=== PATIENT | male | born 1955 | race American Indian/Alaskan Native ===

== ENCOUNTER 2017-01-10 14:00 | Emergency (ER) | payer OTHER ==
--- NOTE | 2017-01-10 15:08 | XRay Report ---
Chest 2 views: History: Shortness of breath. Findings: Normal cardiomediastinal silhouette. Trachea is midline. No consolidation, pneumothorax or pleural effusion. Impression: No acute cardiopulmonary findings.
[2017-01-10 16:09] LABS: Red Blood Count 5.37 M/mm3 (3.65-5.03); White Blood Count 8.4 K/mm3 (4.5-11.0)
[2017-01-10 16:10] LABS: Hematocrit 44.3 % (35.5-45.6); Hemoglobin 14.5 gm/dl (11.8-15.2); Mean Corpuscular HGB Conc 33 % (32-34); Mean Corpuscular Hemoglobin 27 pg (28-32); Mean Corpuscular Volume 83 fl (84-94)
[2017-01-10 16:11] LABS: Mean Platelet Volume 9.8 fl (6-12); Platelet Count 173 K/mm3 (140-440); Red Cell Distribution Width 15.3 % (13.2-15.2)
[2017-01-10 16:14] LABS: Diff Status Complete
[2017-01-10 16:44] LABS: Anion Gap 19 mmol/L; Carbon Dioxide 26 mmol/L (22-30); Chloride 96.2 mmol/L (98-107); Potassium 4.1 mmol/L (3.6-5.0); Sodium 137 mmol/L (137-145)
[2017-01-10 16:45] LABS: BUN/Creatinine Ratio 13.63; Blood Urea Nitrogen 15 mg/dL (9-20); Calcium 9.3 mg/dL (8.4-10.2); Glucose 95 mg/dL (75-100)
[2017-01-10] MEDS ORDERED: ZITHROMAX PO ONE (22:07)
[2017-01-10] MEDS ORDERED: TESSALON PERLES PO ONE (22:07)
[2017-01-10] MEDS ORDERED: TORADOL IM ONE (22:07)
[2017-01-10] MEDS ORDERED: DELTASONE PO ONE (22:07)
[2017-01-10] MEDS ORDERED: DUONEB 0.5 MG-3 MG/3 ML SOLN IH ONE (22:18)
--- NOTE | 2017-01-10 23:00 | Emergency Department Report ---
ED Shortness of Breath HPI - General Chief Complaint: Dyspnea/Respdistress Stated Complaint: SOB,ABD PAIN Time Seen by Provider: 01/10/17 21:51 Source: patient Mode of arrival: Ambulatory Limitations: No Limitations - History of Present Illness Initial Comments: 61-year-old male with a past medical history COPD, hypertension and chronic back pain presents to the hospital complains of shortness, cough, and wheezing for the past week. Cough productive of white and occasional pink sputum. Patient complaining of abdominal cramps that occur with coughing. During cramping episodes patient has to stretch his abdominal muscles for relief. Pain rated 7/10 in intensity. Patient having intermittent wheezing and only has a little bit of albuterol left at home. Denies home nebulizer use, fevers, calf pain, or edema. PMD: Cannot recall the name - Related Data Home Medications Medication Instructions Recorded Confirmed Last Taken Amlodipine Besylate [Norvasc] 10 mg PO DAILY 01/10/17 01/10/17 01/10/17 Lisinopril/Hydrochlorothiazide 1 tab PO QDAY 01/10/17 01/10/17 01/10/17 [Zestoretic 20-25 mg] Penicillin Vk [Veetids TAB] 500 mg PO DAILY 01/10/17 01/10/17 01/10/17 Simvastatin [Zocor TAB] 20 mg PO QHS 01/10/17 01/10/17 01/10/17 Previous Rx's Medication Instructions Recorded Last Taken Type ALBUTEROL Inhaler [ProAir HFA 2 puff IH QID PRN #1 inhalation 01/11/17 Unknown Rx Inhaler] Azithromycin [Zithromax Z-ROSA] 1 dose PO DAILY 5 Days 01/11/17 Unknown Rx Benzonatate [Tessalon Perles] 100 mg PO Q8HR PRN #30 capsule 01/11/17 Unknown Rx Ibuprofen [Motrin] 800 mg PO Q8HR PRN #30 tablet 01/11/17 Unknown Rx Prednisone [predniSONE 10 mg 10 mg PO .TAPER #1 tab.ds.pk 01/11/17 Unknown Rx (6-Day Pack, 21 Tabs)] traMADol [Ultram 50 MG tab] 50 mg PO Q6HR PRN #20 tablet 01/11/17 Unknown Rx Allergies Allergy/AdvReac Type Severity Reaction Status Date / Time No Known Allergies Allergy Verified 11/07/14 09:56 ED Review of Systems ROS: Stated complaint: SOB,ABD PAIN Other details as noted in HPI Comment: All other systems reviewed and negative Other: Constitutional: No fevers chills Eyes: No eye pain visual changes or discharge ENT: No ear pain or throat pain Neck: Denies pain Respiratory: as per hpi Cardiovascular: Denies chest pain, palpitations, syncope GI: Denies nausea, vomiting, diarrhea : Denies dysuria Musculoskeletal: Denies back pain Skin: Denies rash, lesions, erythema Neurologic: Denies headache, numbness, weakness Psychiatric: Denies suicidal ideation, hallucinations ED Past Medical Hx - Past Medical History Hx Hypertension: Yes Hx COPD: Yes Additional medical history: CHRONIC BACK PAIN - Surgical History Additional Surgical History: HERNIA, ABDOMINAL SURGERY - Social History Smoking Status: Current Every Day Smoker Substance Use Type: None - Medications Home Medications: Home Medications Medication Instructions Recorded Confirmed Last Taken Type Amlodipine Besylate [Norvasc] 10 mg PO DAILY 01/10/17 01/10/17 01/10/17 History Lisinopril/Hydrochlorothiazide 1 tab PO QDAY 01/10/17 01/10/17 01/10/17 History [Zestoretic 20-25 mg] Penicillin Vk [Veetids TAB] 500 mg PO DAILY 01/10/17 01/10/17 01/10/17 History Simvastatin [Zocor TAB] 20 mg PO QHS 01/10/17 01/10/17 01/10/17 History ALBUTEROL Inhaler [ProAir HFA 2 puff IH QID PRN #1 inhalation 01/11/17 Unknown Rx Inhaler] Azithromycin [Zithromax Z-ROSA] 1 dose PO DAILY 5 Days 01/11/17 Unknown Rx Benzonatate [Tessalon Perles] 100 mg PO Q8HR PRN #30 capsule 01/11/17 Unknown Rx Ibuprofen [Motrin] 800 mg PO Q8HR PRN #30 tablet 01/11/17 Unknown Rx Prednisone [predniSONE 10 mg 10 mg PO .TAPER #1 tab.ds.pk 01/11/17 Unknown Rx (6-Day Pack, 21 Tabs)] traMADol [Ultram 50 MG tab] 50 mg PO Q6HR PRN #20 tablet 01/11/17 Unknown Rx ED Physical Exam - General Limitations: No Limitations - Other Other exam information: General: No limitations, patient is alert in no acute distress Head exam: Atraumatic, normocephalic Eyes exam: Normal appearance ENT: Moist mucous membrane, normal oropharynx Neck exam: Normal inspection, full range of motion, no meningismus nontender Respiratory exam: Bilateral expiratory wheeze, no accessory muscle use Cardiovascular: Normal rate and rhythm, normal heart sounds Abdomen: Soft, nondistended, and nontender, with normal bowel sounds, no rebound, or guarding Extremity: Full range of motion normal inspection no deformity, no calf tenderness or edema Back: Normal Inspection, full range of motion, no tenderness Neurologic: Alert, oriented x3, cranial nerves intact, no motor or sensory deficit Psychiatric: normal affect, normal mood Skin: Warm, dry, intact ED Course Vital Signs 01/10/17 01/10/17 01/10/17 14:16 21:14 21:21 Temperature 98 F Pulse Rate 84 72 71 Pulse Rate [ Left Middle Lobe] Respiratory 22 19 13 Rate Respiratory Rate [Left Middle Lobe] Blood Pressure 118/76 132/77 Blood Pressure [Right] O2 Sat by Pulse 94 95 94 Oximetry 01/10/17 01/10/17 01/10/17 21:31 21:40 21:41 Temperature Pulse Rate 70 69 69 Pulse Rate [ Left Middle Lobe] Respiratory 13 13 15 Rate Respiratory Rate [Left Middle Lobe] Blood Pressure 139/73 139/73 Blood Pressure 139/73 [Right] O2 Sat by Pulse 94 92 93 Oximetry 01/10/17 01/10/17 01/10/17 21:51 22:01 22:11 Temperature Pulse Rate 68 71 76 Pulse Rate [ Left Middle Lobe] Respiratory 13 14 17 Rate Respiratory Rate [Left Middle Lobe] Blood Pressure 113/76 106/81 106/81 Blood Pressure [Right] O2 Sat by Pulse 93 96 93 Oximetry 01/10/17 01/10/17 01/10/17 22:21 22:28 22:31 Temperature Pulse Rate 85 66 Pulse Rate [ 75 Left Middle Lobe] Respiratory 15 22 Rate Respiratory 18 Rate [Left Middle Lobe] Blood Pressure 130/69 113/65 Blood Pressure [Right] O2 Sat by Pulse 92 100 Oximetry 01/10/17 01/10/17 01/10/17 22:41 22:51 23:00 Temperature Pulse Rate 85 77 Pulse Rate [ Left Middle Lobe] Respiratory 14 14 Rate Respiratory Rate [Left Middle Lobe] Blood Pressure 106/81 123/69 110/65 Blood Pressure [Right] O2 Sat by Pulse 97 95 93 Oximetry 01/10/17 01/10/17 01/10/17 23:08 23:11 23:21 Temperature Pulse Rate Pulse Rate [ 73 Left Middle Lobe] Respiratory 13 13 Rate Respiratory 28 H Rate [Left Middle Lobe] Blood Pressure 110/65 109/69 Blood Pressure [Right] O2 Sat by Pulse 93 92 Oximetry 01/10/17 01/10/17 01/10/17 23:31 23:41 23:51 Temperature Pulse Rate Pulse Rate [ Left Middle Lobe] Respiratory 16 13 13 Rate Respiratory Rate [Left Middle Lobe] Blood Pressure 109/69 109/69 127/92 Blood Pressure [Right] O2 Sat by Pulse 91 94 91 Oximetry 01/11/17 00:01 Temperature Pulse Rate 77 Pulse Rate [ Left Middle Lobe] Respiratory 12 Rate Respiratory Rate [Left Middle Lobe] Blood Pressure 111/64 Blood Pressure 127/92 [Right] O2 Sat by Pulse 90 Oximetry - Reevaluation(s) Reevaluation #1: 01/11/17 00:49 Patient with residual wheezing after receiving her prednisone and albuterol/ Atrovent DuoNeb. Patient does report feeling better. Additional albuterol 5 and Atrovent 0.5 will be given prior to d/c ED Medical Decision Making - Lab Data Result diagrams: 01/10/17 14:31 01/10/17 14:31 Lab Results 01/10/17 01/10/17 Range/Units 14:31 14:31 WBC 8.4 (4.5-11.0) K/mm3 RBC 5.37 H (3.65-5.03) M/mm3 Hgb 14.5 (11.8-15.2) gm/dl Hct 44.3 (35.5-45.6) % MCV 83 L (84-94) fl MCH 27 L (28-32) pg MCHC 33 (32-34) % RDW 15.3 H (13.2-15.2) % Plt Count 173 (140-440) K/mm3 Lymph % (Auto) 12.0 L (13.4-35.0) % [place] % (Auto) 5.0 (0.0-7.3) % Eos % (Auto) 11.0 H (0.0-4.3) % Baso % (Auto) 1.0 (0.0-1.8) % Lymph # 1.0 L (1.2-5.4) K/mm3 [place] # 0.4 (0.0-0.8) K/mm3 Eos # 0.9 H (0.0-0.4) K/mm3 Baso # 0.1 (0.0-0.1) K/mm3 Add Manual Diff Complete Seg Neutrophils % 71.0 H (40.0-70.0) % Seg Neutrophils # 6.0 (1.8-7.7) K/mm3 Sodium 137 (137-145) mmol/L Potassium 4.1 (3.6-5.0) mmol/L Chloride 96.2 L (98-107) mmol/L Carbon Dioxide 26 (22-30) mmol/L Anion Gap 19 mmol/L BUN 15 (9-20) mg/dL Creatinine 1.1 (0.8-1.5) mg/dL Estimated GFR > 60 ml/min BUN/Creatinine Ratio 13.63 % Glucose 95 (75-100) mg/dL Calcium 9.3 (8.4-10.2) mg/dL Troponin T < 0.010 (0.00-0.029) ng/mL - EKG Data -: EKG Interpreted by Me (nsr rate 80, no stemi) - EKG Data When compared to previous EKG there are: previous EKG unavailable - Radiology Data Radiology results: report reviewed (cxr: naf) - Medical Decision Making Patient be treated with acute bronchitis. No signs of hypoxia. Respiratory symptoms improved prior to discharge - Differential Diagnosis bronchitis, pneumonia, pneumonia, viral syndrome Critical Care Time: No Critical care attestation.: If time is entered above; I have spent that time in minutes in the direct care of this critically ill patient, excluding procedure time. ED Disposition Clinical Impression: COPD with acute bronchitis Disposition: DISCHARGED TO HOME OR SELFCARE Is pt being admited?: No Does the pt Need Aspirin: No Condition: Stable Instructions: Acute Bronchitis (ED) Additional Instructions: Take the medication as prescribed. Return if symptoms worsen. Follow up with your doctor. Prescriptions: ALBUTEROL Inhaler [ProAir HFA Inhaler] 2 puff IH QID PRN #1 inhalation PRN Reason: Shortness Of Breath Azithromycin [Zithromax Z-ROSA] 1 dose PO DAILY 5 Days Benzonatate [Tessalon Perles] 100 mg PO Q8HR PRN #30 capsule PRN Reason: Cp Unreliev By Ntg /Aller Morp Ibuprofen [Motrin] 800 mg PO Q8HR PRN #30 tablet PRN Reason: Pain Prednisone [predniSONE 10 mg (6-Day Pack, 21 Tabs)] 10 mg PO .TAPER #1 tab.ds.pk traMADol [Ultram 50 MG tab] 50 mg PO Q6HR PRN #20 tablet PRN Reason: Pain Referrals: SULEMA GARCIA [Other] - 3-5 Days Time of Disposition: 00:53
[2017-01-11] MEDS ORDERED: PROVENTIL IH ONE (00:48)
[2017-01-11] MEDS ORDERED: ATROVENT IH ONE (00:48)
[2017-01-11 01:16] VITALS: BP 108/60
== END 2017-01-11 01:23 | disposition home or self-care (01) ==
LOC: ED 14:00
DX: J44.1 Chronic obstructive pulmonary disease with (acute) exacerbation (principal); G89.29 Other chronic pain; F17.200 Nicotine dependence, unspecified, uncomplicated; Z88.0 Allergy status to penicillin
CPT/HCPCS: 36415; 71020; 80048; 84484; 85025; 93005; 93010; 94640; 96372; 99284; J1885; J7512

== ENCOUNTER 2018-02-12 13:39 | Outpatient (CLI) | payer OTHER ==
--- NOTE | 2018-02-13 07:49 | XRay Report ---
CHEST 2 VIEWS INDICATION: COPD. COMPARISON: 01/10/2017 FINDINGS: PA and lateral chest radiographs demonstrate stable cardiomediastinal silhouette. Slight aortic knob calcifications. Clear lungs. Demineralized bones with mild degenerative spurring. CONCLUSION: No acute disease, stable. Thank you for the opportunity to participate in this patient's care.
== END 2018-02-12 13:40 | disposition home or self-care (01) ==
LOC: XRAY 13:39
PROVIDERS: ATTEND Internal Medicine
DX: J44.9 Chronic obstructive pulmonary disease, unspecified (principal); I10 Essential (primary) hypertension; M47.899 Other spondylosis, site unspecified
CPT/HCPCS: 71046

== ENCOUNTER 2018-04-25 12:50 | Emergency (ER) | payer SELFPAY ==
[2018-04-25] MEDS ORDERED: MAGNESIUM SULFATE 1 GM in NACL 0.9% 50 ML IV ONE (14:29)
[2018-04-25] MEDS ORDERED: ATROVENT IH ONE (14:29)
[2018-04-25] MEDS ORDERED: NACL 0.9% 1000 ML 1,000 ML IV ONE (14:29)
[2018-04-25] MEDS ORDERED: SOLU-Medrol IV ONE (14:29)
[2018-04-25] MEDS ORDERED: PROVENTIL IH ONE (14:29)
--- NOTE | 2018-04-25 14:39 | Emergency Department Report ---
Blank Doc - Documentation Documentation: Patient is a 62-year-old [place] male who is presenting with increased cough and wheeze for the last week. Patient has a history of COPD has been taking his inhalers which is not helping. Patient denies any fever. His his cough is productive of yellow sputum. Focused physical exam shows a diffuse wheeze but the patient speak in full sentences. Patient be given an hour-long neb treatment, solumedrol, and magnesium chest x-ray will be ordered. Patient will be reassessed.
[2018-04-25 15:27] LABS: Basophils # (Auto) 0.1 K/mm3 (0.0-0.1); Basophils % (Auto) 1.3 % (0.0-1.8); Eosinophils # (Auto) 0.8 K/mm3 (0.0-0.4); Eosinophils % (Auto) 11.4 % (0.0-4.3); Hematocrit 38.5 % (35.5-45.6); Hemoglobin 12.7 gm/dl (11.8-15.2); Lymphocytes # (Auto) 1.4 K/mm3 (1.2-5.4); Lymphocytes % (Auto) 21.3 % (13.4-35.0); Mean Corpuscular HGB Conc 33 % (32-34); Mean Corpuscular Hemoglobin 27 pg (28-32); Mean Corpuscular Volume 83 fl (84-94); Monocytes # (Auto) 0.6 K/mm3 (0.0-0.8); Monocytes % (Auto) 8.2 % (0.0-7.3); Platelet Count 188 K/mm3 (140-440); Red Blood Count 4.65 M/mm3 (3.65-5.03); Red Cell Distribution Width 15.4 % (13.2-15.2)
[2018-04-25 15:48] LABS: BUN/Creatinine Ratio 12; Blood Urea Nitrogen 15 mg/dL (9-20); Calcium 9.6 mg/dL (8.4-10.2); Hemolysis Index 45
--- NOTE | 2018-04-25 16:04 | XRay Report ---
FINAL REPORT EXAM: XR CHEST 1V AP HISTORY: dyspnea TECHNIQUE: Single, portable chest x-ray. PRIORS: None. FINDINGS: Cardiac and mediastinal silhouette within normal limits. Lungs are hyperinflated. No significant vascular congestion. No focal consolidation or apparent pneumothorax. Bony thorax grossly unremarkable. IMPRESSION: 1. No acute findings.
--- NOTE | 2018-04-25 17:02 | Emergency Department Report ---
- General Chief Complaint: Dyspnea/Respdistress Stated Complaint: SOB Time Seen by Provider: 04/25/18 14:16 Source: patient Mode of arrival: Ambulatory Limitations: No Limitations - History of Present Illness Initial Comments: Patient is a 62-year-old [place] male who is presenting with increased cough and wheeze for the last week. Patient has a history of COPD has been taking his inhalers which is not helping. Patient denies any fever. His his cough is productive of yellow sputum. Focused physical exam shows a diffuse wheeze but the patient speak in full sentences. MD Complaint: cough Associated Symptoms: chills, cough, shortness of breath. denies: myalgias, headache, abdominal pain, nausea, vomiting, diarrhea, confusion, right sweats, weight loss, epistaxis, hoarseness - Related Data Home Medications Medication Instructions Recorded Confirmed Last Taken Amlodipine Besylate [Norvasc] 10 mg PO DAILY 01/10/17 01/10/17 01/10/17 Lisinopril/Hydrochlorothiazide 1 tab PO QDAY 01/10/17 01/10/17 01/10/17 [Zestoretic 20-25 mg] Penicillin Vk [Veetids TAB] 500 mg PO DAILY 01/10/17 01/10/17 01/10/17 Simvastatin [Zocor TAB] 20 mg PO QHS 01/10/17 01/10/17 01/10/17 Previous Rx's Medication Instructions Recorded Last Taken Type ALBUTEROL Inhaler (OR & NICU) 2 puff IH QID PRN #1 inhalation 01/11/17 Unknown Rx [ProAir HFA Inhaler] Azithromycin [Zithromax Z-ROSA] 1 dose PO DAILY 5 Days tab 01/11/17 Unknown Rx Benzonatate [Tessalon Perles] 100 mg PO Q8HR PRN #30 capsule 01/11/17 Unknown Rx Ibuprofen [Motrin] 800 mg PO Q8HR PRN #30 tablet 01/11/17 Unknown Rx Prednisone [predniSONE 10 mg 10 mg PO .TAPER #1 tab.ds.pk 01/11/17 Unknown Rx (6-Day Pack, 21 Tabs)] traMADol [Ultram 50 MG tab] 50 mg PO Q6HR PRN #20 tablet 01/11/17 Unknown Rx ALBUTEROL NEB's [Proventil 0.083% 5 mg IH TID PRN #20 neb 04/25/18 Unknown Rx NEBS] Amoxicillin/Potassium Clav 1 each PO BID #14 tablet 04/25/18 Unknown Rx [Augmentin 875-125 Tablet] HYDROcodone/APAP 5-325 [[place] 1 each PO Q6HR PRN #15 tablet 04/25/18 Unknown Rx 5/325] Prednisone [predniSONE 10 mg 10 mg PO .TAPER #1 tab.ds.pk 04/25/18 Unknown Rx (6-Day Pack, 21 Tabs)] Allergies Allergy/AdvReac Type Severity Reaction Status Date / Time No Known Allergies Allergy Verified 11/07/14 09:56 ED Review of Systems ROS: Stated complaint: SOB Other details as noted in HPI Comment: All other systems reviewed and negative ED Past Medical Hx - Past Medical History Previous Medical History?: Yes Hx Hypertension: Yes 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) Hx COPD: Yes Additional medical history: CHRONIC BACK PAIN - Surgical History Past Surgical History?: Yes Additional Surgical History: HERNIA, ABDOMINAL SURGERY - Social History Smoking Status: Former Smoker - Medications Home Medications: Home Medications Medication Instructions Recorded Confirmed Last Taken Type Amlodipine Besylate [Norvasc] 10 mg PO DAILY 01/10/17 01/10/17 01/10/17 History Lisinopril/Hydrochlorothiazide 1 tab PO QDAY 01/10/17 01/10/17 01/10/17 History [Zestoretic 20-25 mg] Penicillin Vk [Veetids TAB] 500 mg PO DAILY 01/10/17 01/10/17 01/10/17 History Simvastatin [Zocor TAB] 20 mg PO QHS 01/10/17 01/10/17 01/10/17 History ALBUTEROL Inhaler (OR & NICU) 2 puff IH QID PRN #1 inhalation 01/11/17 Unknown Rx [ProAir HFA Inhaler] Azithromycin [Zithromax Z-ROSA] 1 dose PO DAILY 5 Days tab 01/11/17 Unknown Rx Benzonatate [Tessalon Perles] 100 mg PO Q8HR PRN #30 capsule 01/11/17 Unknown Rx Ibuprofen [Motrin] 800 mg PO Q8HR PRN #30 tablet 01/11/17 Unknown Rx Prednisone [predniSONE 10 mg 10 mg PO .TAPER #1 tab.ds.pk 05/20/17 Unknown Rx (6-Day Pack, 21 Tabs)] traMADol [Ultram 50 MG tab] 50 mg PO Q6HR PRN #20 tablet 01/11/17 Unknown Rx ALBUTEROL NEB's [Proventil 0.083% 5 mg IH TID PRN #20 neb 04/25/18 Unknown Rx NEBS] Amoxicillin/Potassium Clav 1 each PO BID #14 tablet 04/25/18 Unknown Rx [Augmentin 875-125 Tablet] HYDROcodone/APAP 5-325 [[place] 1 each PO Q6HR PRN #15 tablet 04/25/18 Unknown Rx 5/325] Prednisone [predniSONE 10 mg 10 mg PO .TAPER #1 tab.ds.pk 04/25/18 Unknown Rx (6-Day Pack, 21 Tabs)] ED Physical Exam - General Limitations: No Limitations General appearance: alert, in no apparent distress - Head Head exam: Present: atraumatic, normocephalic - Eye Eye exam: Present: normal appearance - ENT ENT exam: Present: mucous membranes moist - Neck Neck exam: Present: normal inspection - Respiratory Respiratory exam: Present: normal lung sounds bilaterally, wheezes. Absent: respiratory distress, rales, rhonchi, accessory muscle use - Cardiovascular Cardiovascular Exam: Present: regular rate, normal rhythm. Absent: systolic murmur, diastolic murmur, rubs, gallop - GI/Abdominal GI/Abdominal exam: Present: soft, normal bowel sounds. Absent: distended, tenderness, guarding, rebound - Rectal Rectal exam: Present: deferred - Extremities Exam Extremities exam: Present: normal inspection - Back Exam Back exam: Present: normal inspection - Neurological Exam Neurological exam: Present: alert, oriented X3 - Psychiatric Psychiatric exam: Present: normal affect, normal mood - Skin Skin exam: Present: warm, dry, intact, normal color. Absent: rash ED Course Vital Signs 04/25/18 12:56 Temperature 97.7 F Pulse Rate 84 Respiratory 24 Rate Blood Pressure 120/55 O2 Sat by Pulse 97 Oximetry ED Medical Decision Making - Lab Data Result diagrams: 04/25/18 15:11 04/25/18 15:11 Lab Results 04/25/18 04/25/18 Range/Units 15:11 15:11 WBC 6.7 (4.5-11.0) K/mm3 RBC 4.65 (3.65-5.03) M/mm3 Hgb 12.7 (11.8-15.2) gm/dl Hct 38.5 (35.5-45.6) % MCV 83 L (84-94) fl MCH 27 L (28-32) pg MCHC 33 (32-34) % RDW 15.4 H (13.2-15.2) % Plt Count 188 (140-440) K/mm3 Lymph % (Auto) 21.3 (13.4-35.0) % [place] % (Auto) 8.2 H (0.0-7.3) % Eos % (Auto) 11.4 H (0.0-4.3) % Baso % (Auto) 1.3 (0.0-1.8) % Lymph # 1.4 (1.2-5.4) K/mm3 [place] # 0.6 (0.0-0.8) K/mm3 Eos # 0.8 H (0.0-0.4) K/mm3 Baso # 0.1 (0.0-0.1) K/mm3 Seg Neutrophils % 57.8 (40.0-70.0) % Seg Neutrophils # 3.9 (1.8-7.7) K/mm3 Sodium 139 (137-145) mmol/L Potassium 4.6 (3.6-5.0) mmol/L Chloride 100.0 (98-107) mmol/L Carbon Dioxide 26 (22-30) mmol/L Anion Gap 18 mmol/L BUN 15 (9-20) mg/dL Creatinine 1.3 (0.8-1.5) mg/dL Estimated GFR > 60 ml/min BUN/Creatinine Ratio 12 % Glucose 98 (75-100) mg/dL Calcium 9.6 (8.4-10.2) mg/dL - Radiology Data His x-ray shows no acute process - Medical Decision Making Patient was given an hour-long neb treatment, Solu-Medrol, and magnesium. Patient is feeling much improved. Lungs are clear to auscultation at the time of discharge. Patient is instructed to use 2 vials of his albuterol every 4-6 hours for shortness of breath. Patient also will be started on a Medrol Dosepak and antibiotics. Patient given meds for cough as well. Critical care attestation.: If time is entered above; I have spent that time in minutes in the direct care of this critically ill patient, excluding procedure time. ED Disposition Clinical Impression: COPD exacerbation Disposition: DC-01 TO HOME OR SELFCARE Is pt being admited?: No Does the pt Need Aspirin: No Condition: Stable Instructions: Chronic Obstructive Pulmonary Disease (ED) Referrals: PRIMARY CARE, [Primary Care Provider] - 3-5 Days Time of Disposition: 17:04
[2018-04-25 17:03] VITALS: BP 138/68
== END 2018-04-25 17:16 | disposition home or self-care (01) ==
LOC: ED 12:50
DX: J44.1 Chronic obstructive pulmonary disease with (acute) exacerbation (principal); I10 Essential (primary) hypertension; G89.29 Other chronic pain; Z86.73 Personal history of transient ischemic attack (TIA), and cerebral infarction without residual deficits; Z79.899 Other long term (current) drug therapy
CPT/HCPCS: 36415; 71045; 80048; 85025; 94640; 96365; 96375; 99284; J2930; J3475; J7030

== ENCOUNTER 2018-11-05 11:48 | Outpatient (CLI) | payer SELFPAY ==
--- NOTE | 2018-11-05 14:28 | XRay Report ---
CHEST XRAY, 2 VIEWS: History: COPD. Findings: There is mild diffuse interstitial coarsening. The lungs are hyperexpanded but clear. No infiltrate, pleural fluid or pneumothorax is detected. The cardiac silhouette and pulmonary vasculature are within normal limits for technique. The bony thorax is unremarkable. IMPRESSION: Changes consistent with COPD. No acute cardiopulmonary process. No change since 04/25/18.
== END 2018-11-05 11:49 | disposition home or self-care (01) ==
LOC: XRAY 11:48
PROVIDERS: ATTEND Internal Medicine
DX: J44.9 Chronic obstructive pulmonary disease, unspecified (principal); I10 Essential (primary) hypertension; Z87.891 Personal history of nicotine dependence
CPT/HCPCS: 71046